=== PATIENT | female | born 1995 | race Caucasian/White ===

== ENCOUNTER 2025-03-22 14:03 | Emergency (ER) | payer MEDICAID, SELFPAY ==
--- OUTSIDE RECORDS SUMMARY | 2025-03-22 14:06 | XMS_ITS | Clinical Summary ---
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 03/15/2022 Overview (03/30/2022): 03/2022 NIL/HPV+, HPV 16/18 negative Plan: Pap/HPV due 03/2023 Depression with anxiety 12/16/2012 Tobacco use disorder 10/19/2010 Attention deficit disorder with hyperactivity(31 4.01) 10/15/2007 Encounters Date Type Department Care Team Description 03/21/2025 Telephone [facility] [address] [place] [address] Jeanette Singh MD Medication Management (Lo-Zumandimine (28) 3-0.02 mg tablet) 03/17/2025 Refill [facility] [address] [place] [address] Jeanette Singh MD Refill Request ( Lo-Zumandimine (28) 3-0.02 mg tablet ) 02/28/2025 Refill [facility] [address] [place] [address] Jeanette Singh MD Refill Request (Lo-zumandimine (28)) 01/31/2025 Refill [facility] [address] [facility] [place] [address] Jeanette Singh MD Refill Request (Lo-zumandimine (28)) 01/01/2025 Refill [facility] [address] [place] [address] Jeanette Singh MD Refill Request (Lo-zumandimine (28)) from Last 3 Months Immunizations Immunization Administration Dates Next Due AMB Influenza, IIV3 (Age >=3 years)(Flu Clinic Only) 05/08/2010,05/19/2008 DTP-HIB 11/27/1994, 4,1993,10/23 DTaP 02/11/2006,12/17/1997 Hepatitis B (Peds) 09/07/1994,1993, 994 Human Papilloma Virus Vaccine 12/16/2012 ,09/16/2012,04/03/2010,01/30 Influenza, IIV3 (Age >=3 years) 05/08/2010,05/19 Influenza, IIV4 06/04/2019,06/06/2017 MMR 12/17/1997,11/27/1994 Meningococcal Vaccine (Menactra) 02/10/2008 Oral Polio Vaccine 12/17/1997, 5,1993,10/23 Tdap 12/11/2017,02/11/2006 Family History Medical History Relation Name Comments Alcohol/Drug Maternal Grandfather Psychiatric illness Mother Allison post par aleksandar depression Psychiatric illness Other 1 MG uncle paranoid schizophrenic Alcohol/Drug Other 2 MGGM Alcohol/Drug Other 3 MGGF Relation Name Status Comments Brother Ilya Alive Father Daryl Alive Maternal Grandfather Alive Maternal Grandmother Alive Mother Allison Alive Other 1 Other 2 Other 3 Paternal Grandfather Alive Paternal Grandmother Alive Sister 1 Anayeli Alive Sister 2 Silvia Alive Social History Tobacco Use Types Packs/Day Years Used Date Smoking Tobacco: Every Day Cigarettes 1 1 Smokeless Tobacco: Never Tobacco Cessation:Ready to Q uit: Yes; Counseling Given: Yes Comments:3/4 of a pack per day Alcohol Use Standard Drinks/Week Comments Yes 0 (1 standard drink = 0.6 oz pur e alcohol) Humiliation, Afraid, Rape, and Kick questionnair e Answer Date Recorded Fear of Current or Ex-Partner No Emotionally Abused No 08/19/2020 Physically Abused No 08/19/2020 Sexually Abused No 08/19/2020 PHQ-2 Answer Date Recorded PHQ-2 TOTAL SCORE 2 07/10/2023 Social Connections Answer Date Recorded Do you often feel lonely or isolated from those around you? 0 07/10/2023 Alcohol Use Answer Date Recorded How often do you have a drink containing alcohol ? 2 03/15/2022 How many drinks containing a lcohol do you have on a typical day when you are drinking? 2 03/15/2022 How often do you have five or more drinks on one occasion? 2 03/15/2022 Financial Resource Strain Answer Date R ecorded Difficulty of Paying Living Expenses 3 07/10/2023 Difficulty of Paying Living Expenses Not on file 07/10/2023 Food Insecurity Answer Date Recorded Do you worry your food will run out before you are able to buy more? 1 07/10/2023 Transportation Needs Answer Date Record ed Does lack of transportation keep you from medica l appointments? 1 07/10/2023 Does lack of transportation keep you from work, meetings or getting things that you need? 1 07/10/2023 Housing Stability Answer Date Recorded What is your housing situation today? 1 07/10/2023 Utilities Answer Date Recorded Do you have trouble paying f or utilities (for example, heat, electricity, water, phone)? 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 Gender Identity Not on file Sexual Orientation Not on file Obstetrics History Last Filed Vital Signs Vital Sign Reading Time Taken Comments Blood Pressure 121/75 07/10/2023 11:04 AM EQUINE PHARMACOLOGY TECHNICIAN Pulse 65 07/10/2023 11:04 AM EQUINE PHARMACOLOGY TECHNICIAN Temperature 36.8 C (98.3 F) 02/15/2017 1:32 PM CDT Respiratory Rate - - Oxygen Saturation 100% 07/10/2023 11:04 AM EQUINE PHARMACOLOGY TECHNICIAN Inhaled Oxygen Concentration - - Weight 48.6 kg (107 lb 3.2 oz) 07/10/2023 11:04 AM EQUINE PHARMACOLOGY TECHNICIAN Height 160.6 cm (5' 3.23) 03/15/2022 1:34 PM CD T Body Mass Index 18.85 03/15/2022 1:34 PM CDT Plan of Treatment Upcoming Encounters Date Type Department Care Team (Late st Contact Info) Description 03/24/2025 2:45 PM CDT Office Visit [facility] [address] [place] [address] Jeanette Singh MD [address] [place] [address] Health Maintenance Due Date Last Done Comments Pneumococcal series for age 6-49 (1 of 2 - PCV) 2012 BMI (ht and wt on same day) for age 18+ 03/15/2023 03/15/2022, 06/04/2019, 12/11/2017, Additional history exists Pap test for age 21-65 03/15/2023 2, 03/15/2022, 12/11/2017 Depression screening for age 12+ 07/10/2024 07/10/2023, 06/08/2019, 06/04/2019, Additional history exists COVID-19 vaccine series ( season) 2025 Influenza Vaccine (#1) 2025 9, 06/06/2017, 05/08/2010, Additional history exists Tetanus booster 12/12/2027 12/11/2017, 02/11/2006 RSV vaccine for adults or (1 - 1-dose 75+ series) 2068 Hepatitis B series for 19+ Completed 09/07, 1993, 1993 HPV series for age 9-45 Completed 12/17/19 13, 12/16/2012, 09/16/2012, Additional history exists HIV for age 15-65 Completed 03/15/2022, , 12/11/2017 Hepatitis C screening for ag e 18-79 Completed 03/15/2022, 12/11/2017 Procedures Procedure Name Priority Date/Time Associated Diagnosis Comments ANTI HIV 1/2 Routine 03/15/2022 2:23 PM CDT Screening examination for STD (sexually transmitted disease) ANTI HCV Routine 03/15/2022 2:23 PM CDT Screening examination for STD (sexually transmitted disease) HPV HIGH RISK Routine 03/15/2022 2:07 PM CDT Screening for cervical cancer from Last 3 Months or Most Recently Relevant to Health Maintenance Results * ANTI HCV (03/15/2022 2:23 PM CDT) [facility] HEPATITIS C ANTIBODY Non-React shani Non-React shani 03/16/2022 3:58 PM CDT [facility] Comment:Antibodies to HCV no t detected; does not exclude the possibility of exposure to HCV. Blood BLOOD SPECIMEN / Unknown Venipuncture / Unknown 03/15/2022 2:23 PM CDT 03/15/2022 2:24 PM CDT Frances Coronel MD SEND OUTS Final Resul t Performing Organization Address City/State/[facility] Co de Phone Number [facility] [address] [place] [address], [place] * ANTI HIV 1/2 (03/15/2022 2:23 PM CDT) [facility] HIV-1/HIV-2 ANTIBODY Non-Reacti ve Non-Reacti ve 03/16/2022 3:54 PM CDT [facility] Comment:HIV-1 p24 and HIV-1/ HIV-2 Ab not detected. Blood BLOOD SPECIMEN / Unknown Venipuncture / Unknown 03/15/2022 2:23 PM CDT 03/15/2022 2:24 PM CDT Frances Coronel MD SEND OUTS Final Resul t [facility] [address] [place] [address], [place] * (ABNORMAL) HPV HIGH RISK (03/15/2022 2:07 PM CDT) TYPE 16 Negative Negative 03/20/2022 3:06 PM CDT [facility] TYPE 18 Negative Negative 03/20/2022 3:06 PM CDT [facility] OTHER HIGH RISK TYPES Positive(A) Negative 03/20/2022 3:06 PM CDT [facility] Other (Cervical) Non-Blood / Unknown 03/15/2022 2:07 PM CDT 03/16/2022 10:14 AM CDT Narrative [facility] - 03/20/2022 3:06 PM CDT Specimen is positive for the DNA of any one of, or combination of, the following high risk HPV types: 31, 33, 35, 39, 45, 51, 52, 56, 58, 59, 66, 68. HPV types 16 and 18 DNA were undetectable or below the pre-set threshold. Methodology: Katy Ariane 4800 HPV Test Frances Coronel MD MICROBIOLOGY Final Resul t Performing Organization Address City/[facility]/ZIP Co de Phone Number [facility] [address] [place] [address], [place] from Last 3 Months or Most Recently Relevant to Health Maintenance Insurance [facility] [id number] [place] [address] Care Teams Servicer Travel Trailers Relationship Specialty Start Date End Date Jeanette Singh MD [address] [place] [address] PCP - General Family Practice 07/06/24
[2025-03-22 14:24] VITALS: BP 131/76; PULSE 72; RESP 18; TEMP 36.9; O2SAT 98; BMI 17.7
--- NOTE | 2025-03-22 14:33 | CRLHL7_ITS ---
For Patients: As a result of the Century Cures Act, medical imaging exams and procedure reports are released immediately into your electronic medical record. You may view this report before your referring provider. If you have questions, please contact your health care provider. Indication: Left tonsillar swelling. Technique: CT images of the neck following intravenous contrast. Comparison: None. Findings: Asymmetric enlargement of the left palatine tonsil. Hypoenhancement within the left peritonsillar region 6 mm (series 6, image 34) may represent phlegmon or a very small abscess. Mass effect results in mild narrowing of the oropharyngeal airway. Inflammatory stranding within the left parapharyngeal region. Hypopharynx and larynx are widely patent and without enhancing lesions. No thickening of the epiglottis or retropharyngeal edema No enhancing lesions in the oral cavity or floor of mouth. The parotid and submandibular glands are unremarkable. The thyroid gland is unremarkable. Enlarged left level II lymph nodes, likely reactive. Limited images through the brain are without pathologic intracranial enhancement. The visualized paranasal sinuses and mastoid air cells are clear. Mild cervical spondylosis. No aggressive osseous lesions. Aberrant right subclavian artery. No concerning opacities in the visualized lungs. Impression: 1. Asymmetric enlargement of the left palatine tonsil, compatible with tonsillitis. Subcentimeter hypoenhancement in the left peritonsillar region may represent phlegmon or a very small abscess. There is mild narrowing of the oropharyngeal airway. 2. Enlarged left level II lymph nodes, likely reactive. Please note that all CT scans at this facility use dose modulation, iterative reconstruction, and/or weight-based dosing when appropriate to reduce radiation dose to as low as reasonably achievable. Dictated by Hernando Perla MD @ 03/22/2025 4:40:24 PM (Electronically Signed)
--- NOTE | 2025-03-22 15:21 | ED_ITS ---
HPI - General Adult General Date Seen: 03/22/25 <Houston Epperson MD - Last Filed: 03/23/25 08:44> Chief complaint: Sore Throat <Houston Epperson MD - Last Filed: 03/23/25 08:44> Stated complaint: tonsil abscess <Houston Epperson MD - Last Filed: 03/23/25 08:44> Time Seen by Provider: 03/22/25 14:59 <Houston Epperson MD - Last Filed: 03/23/25 08:44> Source: patient <Houston Epperson MD - Last Filed: 03/23/25 08:44> Mode of arrival: ambulatory <Houston Epperson MD - Last Filed: 03/23/25 08:44> Limitations: no limitations <Houston Epperson MD - Last Filed: 03/23/25 08:44> History of Present Illness HPI narrative: Patient is a very nice lady has a history of a sore throats in the past when she was younger but not for a while, presents here from urgent care for the questionable left-sided peritonsillar abscess. She has been having trouble swallowing but is able to eat and drink normally, low-grade fever at home, unsure if it has been over 100?. Otherwise been doing pretty well. No cough cold-like symptoms no chest pain, no nausea no vomiting no rashes. Taking Tylenol ibuprofen for the discomfort. <Houston Epperson MD - Last Filed: 03/23/25 08:44> Related Data Home medications: Home Medications ?Medication ?Instructions ?Recorded ?Confirmed drospirenone 3 mg-ethinyl 1 tab PO DAILY 10/24/2403/02 estradiol 0.02 mg tablet (Lo-Zumandimine (28)) Previous Rx's ?Medication ?Instructions ?Recorded amoxicillin 875 mg-potassium 1 tab PO BID #20 tabs clavulanate 125 mg tablet ketorolac 10 mg tablet 10 mg PO TID 5 days #15 tabs 03/22/25 <Houston Epperson MD - Last Filed: 03/23/25 08:44> Allergies/adverse reactions: Allergies Allergy/AdvReac Type Severity Reaction Status Date / Time No Known Drug Allergies Allergy Verified 03/22/25 16:05 <Houston Epperson MD - Last Filed: 03/23/25 08:44> Review of Systems Status of ROS: Reports: 10 or more systems reviewed and unremarkable except as noted in History and below <Houston Epperson MD - Last Filed: 03/23/25 08:44> [facility] Social History: Social History Smoking Status: Never smoker Do you use any of these nicotine containing products: None Second hand tobacco smoke exposure: No How often do you have a drink containing alcohol: never AUDIT-C Alcohol total score: 0 Non-prescribed substance use: denies use <Houston Epperson MD - Last Filed: 03/23/25 08:44> Exam Narrative: Exam Narrative: On examination she is in no apparent distress she is normal mouth opening, left- sided swelling consistent with a peritonsillar abscess moderate is noted. Lymphatic swelling on the left side is also noted no evidence of any meningismus or TMs bilaterally are normal, neck is supple full range of motion, chest is good air entry bilaterally no wheezing crackles noted heart sounds are normal. Abdomen is soft. No guarding no organomegaly <Houston Epperson MD - Last Filed: 03/23/25 08:44> Const: Vital Signs, click to edit/add: Vital Signs - 24 hr 03/22/25 14:24 Temperature 98.4 F Pulse Rate [Pulse Oximeter] 72 Respiratory Rate 18 Blood Pressure [Ri ght Upper Arm] 131/76 Pulse Oximetry 98 Oxygen Delivery Me thod Room Air <Houston Epperson MD - Last Filed: 03/23/25 08:44> Vital Signs, click to edit/add: Vital Signs - 24 hr 03/22/25 14:24 Temperature 98.4 F Pulse Rate [Pulse Oximeter] 72 Respiratory Rate 18 Blood Pressure [Ri ght Upper Arm] 131/76 Pulse Oximetry 98 Oxygen Delivery Me thod Room Air <Juan C Street MD - Last Filed: 03/22/25 17:05> Course Vital Signs Vital signs: Initial Vital Signs Temperature 98.4 F 03/22/25 14:24 Temperature Source Temporal Artery Scan 03/22/25 14:24 Pulse Rate 72 03/22/25 14:24 Respiratory Rate 18 03/22/25 14:24 Blood Pressure 131/76 03/22/25 14:24 Blood Pressure Mean 94 03/22/25 14:24 Pulse Oximetry 98 03/22/25 14:24 Oxygen Delivery Method Room Air 03/22/25 14:24 Vital Signs Temperature 98.4 F 03/22/25 14:24 Pulse Rate 72 03/22/25 14:24 Respiratory Rate 18 03/22/25 14:24 Blood Pressure 131/76 03/22/25 14:24 Pulse Oximetry 98 03/22/25 14:24 Oxygen Delivery Method Room Air 03/22/25 14:24 Temperature 98.4 F 03/22/25 14:24 Pulse Rate 72 03/22/25 14:24 Respiratory Rate 18 03/22/25 14:24 Blood Pressure 131/76 03/22/25 14:24 Pulse Oximetry 98 03/22/25 14:24 Oxygen Delivery Method Room Air 03/22/25 14:24 <Houston Epperson MD - Last Filed: 03/23/25 08:44> Initial Vital Signs Temperature 98.4 F 03/22/25 14:24 Temperature Source Temporal Artery Scan 03/22/25 14:24 Pulse Rate 72 03/22/25 14:24 Respiratory Rate 18 03/22/25 14:24 Blood Pressure 131/76 03/22/25 14:24 Blood Pressure Mean 94 03/22/25 14:24 Pulse Oximetry 98 03/22/25 14:24 Oxygen Delivery Method Room Air 03/22/25 14:24 Vital Signs Temperature 98.4 F 03/22/25 14:24 Pulse Rate 72 03/22/25 14:24 Respiratory Rate 18 03/22/25 14:24 Blood Pressure 131/76 03/22/25 14:24 Pulse Oximetry 98 03/22/25 14:24 Oxygen Delivery Method Room Air 03/22/25 14:24 Temperature 98.4 F 03/22/25 14:24 Pulse Rate 72 03/22/25 14:24 Respiratory Rate 18 03/22/25 14:24 Blood Pressure 131/76 03/22/25 14:24 Pulse Oximetry 98 03/22/25 14:24 Oxygen Delivery Method Room Air 03/22/25 14:24 <Juan C Street MD - Last Filed: 03/22/25 17:05> Medications Administered Medications: Discontinued Medications Generic Name Dose Route Start Last Admin Trade Name Freq PRN Reason Stop Dose Admin Sodium Chloride 1,000 mls @ 1,000 mls/hr 03/22/25 14:45 03/22/25 16:48 0.9 % Sodium Chloride 1000 Ml IV 03/22/25 15:44 Infused .Q1H AMANDA Infusion Sodium Chloride 1,000 mls @ 1,000 mls/hr 03/22/25 15:15 03/22/25 15:44 0.9 % Sodium Chloride 1000 Ml IV 03/22/25 16:14 Not Given .Q1H AMANDA <Houston Epperson MD - Last Filed: 03/23/25 08:44> Discontinued Medications Generic Name Dose Route Start Last Admin Trade Name Freq PRN Reason Stop Dose Admin Sodium Chloride 1,000 mls @ 1,000 mls/hr 03/22/25 14:45 03/22/25 16:48 0.9 % Sodium Chloride 1000 Ml IV 03/22/25 15:44 Infused .Q1H AMANDA Infusion Sodium Chloride 1,000 mls @ 1,000 mls/hr 03/22/25 15:15 03/22/25 15:44 0.9 % Sodium Chloride 1000 Ml IV 03/22/25 16:14 Not Given .Q1H AMANDA <Juan C Street MD - Last Filed: 03/22/25 17:05> Medical Decision Making MDM Narrative Medical decision making narrative: I discussed with her this is likely a peritonsillar abscess, we will do laboratory work, along with a CT scan of soft tissue with IV contrast and consult ENT as needed. She was comfortable this plan. <Houston Epperson MD - Last Filed: 03/23/25 08:44> I discussed with her this is likely a peritonsillar abscess, we will do laboratory work, along with a CT scan of soft tissue with IV contrast and consult ENT as needed. She was comfortable this plan. CT imaging returns with evidence of tonsillitis and perhaps a very small abscess. This is not drainable currently given its small size. The patient is okay to be discharged home and received prescriptions for Augmentin and Toradol. I did advise her regarding signs and symptoms where an abscess if it is forming can worsen and would need further attention. She should return if this occurs. <Juan C Street MD - Last Filed: 03/22/25 17:05> Medical Records Medical records reviewed: Yes I reviewed the patient's medical records <Houston Epperson MD - Last Filed: 03/23/25 08:44> Lab Data Lab results reviewed: Yes I reviewed the patient's lab results <Houston Epperson MD - Last Filed: 03/23/25 08:44> Lab results narrative: I reviewed that her strep was negative at urgent care. <Houston Epperson MD - Last Filed: 03/23/25 08:44> Labs: Lab Results 03/22/25 03/22/25 Range/Units 14:28 15:30 WBC 18.01 H (4.50-11.00) K/uL RBC 4.45 (4.00-5.20) m/uL Hgb 14.4 (12.0-16.0) gm/dL Hct 43.4 (33.0-51.0) % MCV 98 (80-100) fL MCH 32 (26-34) pg MCHC 33 (32-36) gm/dL RDW Coeff of Jaz 12.9 (11.5-15.5) % Plt Count 193 (140-440) K/uL Neut % (Auto) 83.6 H (42.0-72.0) % Lymph % (Auto) 10.5 L (20-44) % [place] % (Auto) 5.4 (0.0-11.0) % Eos % (Auto) 0.2 (0.0-7.0) % Baso % (Auto) 0.1 (0.0-3.0) % Neut # (Auto) 15.10 H (1.7-7.0) K/uL Lymph # (Auto) 1.90 (0.90-2.90) K/uL [place] # (Auto) 1.00 H (0.00-0.90) K/UL Eos # (Auto) 0.00 (0.00-0.50) K/uL Baso # (Auto) 0.00 (0.00-0.30) K/uL Abs Immat Gran (auto) 0.00 (0.00-0.30) K/uL Imm/Tot Granulo (auto) 0.2 % Sodium 137 (135-149) mmol/L Potassium 3.8 (3.6-5.1) mmol/L Chloride 105 (96-114) mmol/L Carbon Dioxide 24 (20-32) mmol/L Anion Gap 8 (7-15) mEq/L BUN 7 (5-24) mg/dL Creatinine 0.6 (0.5-1.5) mg/dL Estimated Creat Clear 97.48 Estimated GFR 123 ml/min Glucose 88 (60-115) mg/dL Calcium 9.4 (8.4-10.6) mg/dL C-Reactive Protein 3.5 H (0.5-1.0) mg/dL Procalcitonin 0.04 (<0.50) ng/mL Urine HCG, Qual Negative (Negative) <Houston Epperson MD - Last Filed: 03/23/25 08:44> Lab Results 03/22/25 03/22/25 Range/Units 14:28 15:30 WBC 18.01 H (4.50-11.00) K/uL RBC 4.45 (4.00-5.20) m/uL Hgb 14.4 (12.0-16.0) gm/dL Hct 43.4 (33.0-51.0) % MCV 98 (80-100) fL MCH 32 (26-34) pg MCHC 33 (32-36) gm/dL RDW Coeff of Jaz 12.9 (11.5-15.5) % Plt Count 193 (140-440) K/uL Neut % (Auto) 83.6 H (42.0-72.0) % Lymph % (Auto) 10.5 L (20-44) % [place] % (Auto) 5.4 (0.0-11.0) % Eos % (Auto) 0.2 (0.0-7.0) % Baso % (Auto) 0.1 (0.0-3.0) % Neut # (Auto) 15.10 H (1.7-7.0) K/uL Lymph # (Auto) 1.90 (0.90-2.90) K/uL [place] # (Auto) 1.00 H (0.00-0.90) K/UL Eos # (Auto) 0.00 (0.00-0.50) K/uL Baso # (Auto) 0.00 (0.00-0.30) K/uL Abs Immat Gran (auto) 0.00 (0.00-0.30) K/uL Imm/Tot Granulo (auto) 0.2 % Sodium 137 (135-149) mmol/L Potassium 3.8 (3.6-5.1) mmol/L Chloride 105 (96-114) mmol/L Carbon Dioxide 24 (20-32) mmol/L Anion Gap 8 (7-15) mEq/L BUN 7 (5-24) mg/dL Creatinine 0.6 (0.5-1.5) mg/dL Estimated Creat Clear 97.48 Estimated GFR 123 ml/min Glucose 88 (60-115) mg/dL Calcium 9.4 (8.4-10.6) mg/dL C-Reactive Protein 3.5 H (0.5-1.0) mg/dL Procalcitonin 0.04 (<0.50) ng/mL Urine HCG, Qual Negative (Negative) <Juan C Street MD - Last Filed: 03/22/25 17:05> Imaging Data CT Neck Soft Tissue: Radiologist's impression: 1. Asymmetric enlargement of the left palatine tonsil, compatible with tonsillitis. Subcentimeter hypoenhancement in the left peritonsillar region may represent phlegmon or a very small abscess. There is mild narrowing of the oropharyngeal airway. 2. Enlarged left level II lymph nodes, likely reactive. <Juan C Street MD - Last Filed: 03/22/25 17:05> Discharge Plan Discharge Clinical Impression: Acute tonsillitis <Houston Epperson MD - Last Filed: 03/23/25 08:44> Patient Disposition: Home, Self-Care <Houston Epperson MD - Last Filed: 03/23/25 08:44> Condition: Stable <Houston Epperson MD - Last Filed: 03/23/25 08:44> Additional Instructions: Take medication as prescribed. Follow up with MD return if symptoms are persistent or worsening. <Houston Epperson MD - Last Filed: 03/23/25 08:44> Prescriptions: New ketorolac 10 mg tablet 10 mg PO TID 5 Days Qty: 15 0RF amoxicillin-pot clavulanate 875-125 mg tablet 1 tab PO BID Qty: 20 0RF No Action drospirenone-ethinyl estradiol [Lo-Zumandimine (28)] 3-0.02 mg tablet 1 tab PO DAILY <Houston Epperson MD - Last Filed: 03/23/25 08:44> Follow Up/Referrals: Provider,Not a Local [Primary Care Provider, Family Practice] <Houston Epperson MD - Last Filed: 03/23/25 08:44> Stand Alone Forms: MyHealth Info Instructions <Houston Epperson MD - Last Filed: 03/23/25 08:44>
[2025-03-22 15:32] LABS: Ur HCG Qualitative* Negative (Negative)
[2025-03-22 15:50] LABS: Hematocrit* 43.4 % (33.0-51.0); Hemoglobin* 14.4 gm/dL (12.0-16.0); Mean Corpuscular HGB Conc 33 gm/dL (32-36); Mean Corpuscular Hemoglobin 32 pg (26-34); Mean Corpuscular Volume 98 fL (80-100); RDW Coefficient of Variation % 12.9 % (11.5-15.5); Red Blood Count* 4.45 m/uL (4.00-5.20); White Blood Count* 18.01 K/uL (4.50-11.00)
[2025-03-22 15:51] LABS: Immature Granulocytes Pct Auto 0.2 %
[2025-03-22 15:52] LABS: Immature Granulocytes Abs Auto 0.00 K/uL (0.00-0.30); Lymphocytes Absolute Auto 1.90 K/uL (0.90-2.90); Slide Review Reflex No
[2025-03-22 16:09] LABS: Chloride* 105 mmol/L (96-114); Potassium* 3.8 mmol/L (3.6-5.1); Sodium* 137 mmol/L (135-149)
[2025-03-22 16:12] LABS: Anion Gap 8 mEq/L (7-15); Blood Urea Nitrogen* 7 mg/dL (5-24); Calcium* 9.4 mg/dL (8.4-10.6); Carbon Dioxide* 24 mmol/L (20-32); Creatinine* 0.6 mg/dL (0.5-1.5); Est. Creatinine Clearance* 97.48; Estimated Glomerular Filt Rate 123 ml/min; Glucose* 88 mg/dL (60-115)
[2025-03-22 16:29] LABS: Procalcitonin* 0.04 ng/mL (<0.50)
== END 2025-03-22 17:21 | disposition home or self-care (01) ==
PROVIDERS: Emergency Provider Family Medicine
DX: J03.90 Acute tonsillitis, unspecified (principal)
CPT/HCPCS: 36415; 70491; 80048; 81025; 84145; 85025; 86140; 96360; 99284; 99285; J7030; Q9967